=== PATIENT | female | born 2000 | race African-American/Black ===

== ENCOUNTER 2018-11-25 11:23 | Emergency (ER) | payer OTHER ==
[~2018-11-25] VITALS: Ht 167.6 cm; Wt 83.0 kg
[2018-11-25 12:13] LABS: URINE BILIRUBIN NEGATIVE (Negative); URINE BLOOD 3+ (Negative); URINE CLARITY CLEAR; URINE COLOR YELLOW; URINE GLUCOSE-RANDOM* NEGATIVE (Negative); URINE KETONES NEGATIVE (Negative); URINE LEUKOCYTES-REFLEX 1+ (Negative); URINE NITRITE-REFLEX POSITIVE (Negative); URINE PROTEIN (DIPSTICK) NEGATIVE (Negative)
[2018-11-25 12:24] LABS: SQUAMOUS 4-10 Moderate /LPF (0-3)
[2018-11-25 12:25] LABS: BACTERIA-REFLEX >30 Many /HPF (None Seen); CASTS None Seen /LPF (None Seen); CRYSTALS None Seen /LPF (None Seen); URINE RBC None Seen /HPF (0-2)
[2018-11-25] MEDS ORDERED: BACTRIM DS TAB1 EACH PO (13:42)
[2018-11-25] MEDS ORDERED: MOBIC7.5 MG PO (13:42)
[2018-11-25 13:48] VITALS: BP 122/72
== END 2018-11-25 13:48 | disposition home or self-care (01) ==
LOC: ER 11:23
PROVIDERS: Physician Assistant
DX: N76.4 Abscess of vulva (principal)

== ENCOUNTER 2018-12-10 11:14 | Emergency (ER) | payer OTHER ==
[~2018-12-10] VITALS: Ht 167.6 cm; Wt 83.5 kg
[~2018-12-10 11:14] MED LIST: BACTRIM DS TAB1 EACH PO; MOBIC7.5 MG PO
[2018-12-10 13:03] LABS: URINE BILIRUBIN NEGATIVE (Negative); URINE BLOOD NEGATIVE (Negative); URINE COLOR YELLOW; URINE GLUCOSE-RANDOM* NEGATIVE (Negative); URINE KETONES NEGATIVE (Negative); URINE PROTEIN (DIPSTICK) NEGATIVE (Negative); URINE UROBILINOGEN 0.2 E.U./dl (0.2-1.0)
[2018-12-10 13:04] LABS: URINE LEUKOCYTES-REFLEX 1+ (Negative); URINE NITRITE-REFLEX POSITIVE (Negative)
[2018-12-10 13:05] LABS: URINE CLARITY SL HAZY
[2018-12-10 13:08] LABS: BACTERIA-REFLEX >30 Many /HPF (None Seen); CASTS None Seen /LPF (None Seen); CRYSTALS None Seen /LPF (None Seen); SQUAMOUS 4-10 Moderate /LPF (0-3); URINE RBC None Seen /HPF (0-2); URINE WBC-REFLEX 6-15 Few /HPF (0-5)
[2018-12-10 14:20] VITALS: BP 114/63
[2018-12-10] MEDS ORDERED: FLAGYL500 M1 PO (14:54)
[2018-12-10] MEDS ORDERED: NORCO 7.5-3251 EACH PO (14:54)
[2018-12-10] MEDS ORDERED: DOXYCYCLINE 10100 MG PO (14:54)
== END 2018-12-10 14:20 | disposition home or self-care (01) ==
LOC: ER 11:14
PROVIDERS: Nurse Practitioner Family
DX: N76.4 Abscess of vulva (principal); N39.0 Urinary tract infection, site not specified

== ENCOUNTER 2019-04-29 10:27 | Emergency (ER) | payer OTHER ==
[~2019-04-29] VITALS: Ht 167.6 cm; Wt 81.7 kg
[~2019-04-29 10:27] MED LIST changes: +DOXYCYCLINE 10100 MG PO; +FLAGYL500 M1 PO; +NORCO 7.5-3251 EACH PO
[2019-04-29 11:09] LABS: HEMATOCRIT 39.8 % (37.0-47.0); MCHC 32.7 g/dL (28.0-37.0); PLATELET COUNT 217 thou/uL (150-400); RBC 4.32 mil/uL (4.20-5.00); RDW 13.1 % (10.5-14.5)
[2019-04-29 11:16] LABS: CALCIUM 8.9 mg/dL (8.5-10.1); CREATININE 0.7 mg/dL (0.6-1.0); POTASSIUM 3.8 mmol/L (3.5-5.1)
[2019-04-29 11:22] LABS: ALBUMIN 3.7 g/dL (3.4-5.0); TOTAL BILIRUBIN 0.5 mg/dL (<0.1-1.0); TOTAL PROTEIN 7.8 g/dL (6.4-8.2)
[2019-04-29 11:52] LABS: ABSOLUTE NEUTROPHILS 4.3 thou/uL (1.4-8.2); PLATELET ESTIMATE NORMAL
[2019-04-29] MEDS ORDERED: BACTRIM DS TAB1 EACH PO (12:29)
[2019-04-29] MEDS ORDERED: NORCO 5-325 TA1 EAC1 PO (12:29)
[2019-04-29 13:28] VITALS: BP 121/64
== END 2019-04-29 13:30 | disposition home or self-care (01) ==
LOC: ER 10:27
PROVIDERS: Emergency Medicine
DX: N75.0 Cyst of Bartholin's gland (principal); N76.4 Abscess of vulva; Z88.0 Allergy status to penicillin; Z88.1 Allergy status to other antibiotic agents; Z88.6 Allergy status to analgesic agent; Z88.8 Allergy status to other drugs, medicaments and biological substances

== ENCOUNTER 2021-03-27 20:06 | Emergency (ER) | payer OTHER ==
[~2021-03-27] VITALS: Ht 167.6 cm; Wt 90.7 kg
[~2021-03-27 20:06] MED LIST changes: +NORCO 5-325 TA1 EAC1 PO
[2021-03-27] MEDS ORDERED: BACTRIM DS TAB1 EACH PO (21:46)
[2021-03-27] MEDS ORDERED: HYDROCODON-ACE1 EAC7 PO (21:46)
[2021-03-28 08:11] VITALS: BP 132/78
== END 2021-03-27 22:30 | disposition home or self-care (01) ==
LOC: ER 20:06
DX: N76.4 Abscess of vulva (principal); Z88.0 Allergy status to penicillin; Z88.8 Allergy status to other drugs, medicaments and biological substances; Z88.1 Allergy status to other antibiotic agents

== ENCOUNTER 2021-06-14 16:15 | Emergency (ER) | payer OTHER ==
[~2021-06-14] VITALS: Ht 167.6 cm; Wt 81.7 kg
[~2021-06-14 16:15] MED LIST changes: +HYDROCODON-ACE1 EAC7 PO
[2021-06-14 16:47] LABS: URINE BILIRUBIN NEGATIVE (Negative); URINE BLOOD NEGATIVE (Negative); URINE CLARITY SL CLOUDY; URINE COLOR YELLOW; URINE GLUCOSE-RANDOM* NEGATIVE (Negative); URINE KETONES NEGATIVE (Negative); URINE LEUKOCYTES-REFLEX NEGATIVE (Negative); URINE PROTEIN (DIPSTICK) NEGATIVE (Negative); URINE SPECIFIC GRAVITY 1.025 (1.005-1.035)
[2021-06-14 16:49] LABS: URINE NITRITE-REFLEX POSITIVE (Negative)
[2021-06-14 17:23] LABS: CASTS None Seen /LPF (None Seen); SQUAMOUS 4-10 Moderate /LPF (0-3); URINE WBC-REFLEX 6-15 Few /HPF (0-5)
[2021-06-14 17:24] LABS: BACTERIA-REFLEX >30 Many /HPF (None Seen); CRYSTALS None Seen /LPF (None Seen); URINE RBC 1-2 Rare /HPF (NONE SEEN)
[2021-06-14] MEDS ORDERED: METRONIDAZOLE500 M4 PO (17:39)
[2021-06-14 19:41] VITALS: BP 115/61
== END 2021-06-14 19:42 | disposition home or self-care (01) ==
LOC: ER 16:15
PROVIDERS: Physician Assistant
DX: N76.0 Acute vaginitis (principal); B96.89 Other specified bacterial agents as the cause of diseases classified elsewhere; Z79.891 Long term (current) use of opiate analgesic; Z79.899 Other long term (current) drug therapy; Z79.1 Long term (current) use of non-steroidal anti-inflammatories (NSAID); Z88.0 Allergy status to penicillin; Z88.8 Allergy status to other drugs, medicaments and biological substances